=== PATIENT | female | born 1955 | race Caucasian/White ===

== ENCOUNTER 2017-04-06 01:21 | Emergency (ER) | payer BC, OTHER ==
[2017-04-06 02:18] VITALS: BP 130/71
--- NOTE | 2017-04-06 02:41 | ERNOTE ---
ER Female HPI Stated Complaint: UTI NOT IMPROVING Time Seen by Provider: 04/06/17 02:31 Source: patient Exam Limitations: no limitations Immunizations: IMMUNIZATION HX Immunizations Up to Date Yes History of Influenza Vaccine Yes Allergies/Adverse Reactions: Allergies No Known Drug Allergies Allergy (Verified 04/06/17 02:25) Home Medications: HOME MEDICATIONS Lactobacillus 3/Fos/Pantethine [Probiotic & Acidophilus Cap] 1 each PO DAILY 06/15 [Last Taken Unknown] Nitrofurantoin/Nitrofuran Mac [Macrobid] 100 mg PO Q12H 04/06/17 [Last Taken Unknown] Phenazopyridine HCl [Azo Standard] 97.5 mg PO DAILY 04/06/17 [Last Taken 00:00] Sulfamethoxazole/Trimethoprim [Bactrim Ds] 1 tab PO BID #14 tab 04/06/17 [Last Taken Unknown] - History of Present Illness Narrative: Patient presents to the emergency room for sensation of pressure in the bladder region, she feels as it "I have a UTI". She has been placed on Cipro which did not help her following that she was placed on Macrobid following a course of Macrobid yet she is still having pressure and dysuria. Denies any fevers or chills she denies any nausea or vomiting or back pain. The patient believes her urinary tract infection is not treated properly. Review of Systems - Review of Systems Constitutional: Present: no symptoms reported EYE: Present: no symptoms reported ENT: Present: no symptoms reported Respiratory: Present: no symptoms reported Cardiology: Present: no symptoms reported Gastrointestinal/Abdominal: Present: no symptoms reported Genitourinary: Present: See HPI - Patient's Past Medical History Patient History - Medical: UTI'S Patient History - Cardiac/Respiratory: No pertinent hx Patient History - Cancer: No Hx of Cancer Patient History - Surgical Procedures: No surgical history Patient History - Other: None LMP (females 10-50): Patient has been through menopause - Family History Mother Family History - Medical: No pertinent hx Family History - Cardiac/Respiratory: No pertinent hx Family History - Cancer: No pertinent family hx - Social History Living Situations: spouse Abuse History: No History of abuse Psych History: Hx of Anxiety Smoking Status: Never smoker Have you smoked in the past 12 months: No Do you dip or chew tobacco: No Patient requests Smoking Cessation Consult: No Initiate information on Smoking Cessation: No Alcohol Use: none Drug Use: none - Immunizations Immunizations Up to Date: Yes History of Influenza Vaccine: Yes Physical Exam - Physical Exam General Appearance: Present: wd/wn, alert, no apparent distress Ears, Nose, Throat: Present: normal ENT inspection Neck: Present: normal inspection, nontender Respiratory: Present: no respiratory distress, normal breath sounds, no accessory muscle use, chest nontender, lungs clear Cardiovascular/Chest: Present: regular rate, rhythm, no murmur, normal peripheral pulses Gastrointestinal/Abdominal: Present: other - edematous soft nondistended and nontender she does have some suprapubic tenderness on examination but no rebound tenderness this is a benign abdomen. ED Progress - Results and Orders Patient's Lab Results:: I have reviewed the patient's lab results. - Vital Signs Patient's Vital Signs:: I have reviewed the patient's vital signs. Vital Signs: Vital Signs 04/06/17 02:10 Temperature 36.6 C Pulse Rate 67 Respiratory 14 Rate Blood Pressure 130/71 O2 Sat by Pulse 98 Oximetry - Progress/Reassessment Chief Complaint: Urinary Tract Problems Plan - Plan Plan: Patient tends to have a UTI which apparently is resistant to Cipro and Macrobid cultures have been ordered however this patient will be treated at this time with Bactrim. Vitals are stable and a prescription for Bactrim will be given to her. She is to follow up with her primary care doctor. This patient's urinalysis revealed that she still had nitrates Departure Clinical Impression: Urinary tract infection Qualifiers: Urinary tract infection type: site unspecified Hematuria presence: with hematuria Qualified Code(s): N39.0 - Urinary tract infection, site not specified ; R31.9 - Hematuria, unspecified - Departure Disposition: Home self-care Condition: Good Instructions: Urinary Tract Infection, Adult, [id number] Referrals: Mariaelena Joseph MD [Primary Care Provider] - Prescriptions: Sulfamethoxazole/Trimethoprim [Bactrim Ds] 1 tab PO BID #14 tab
[2017-04-06 02:44] LABS: Urine Bilirubin Negative (NEGATIVE); Urine Blood Negative /ul (NEGATIVE); Urine Ketone 15 mg/dL (NEGATIVE); Urine Protein Negative (NEGATIVE); Urine Specific Gravity <=1.005 SP.GR. (1.005-1.010); Urine Urobilinogen Normal (NORMAL); Urine pH 5.5 pH (5.0-7.0)
[2017-04-06 03:04] LABS: Urine Appearance Clear; Urine Bacteria 3+; Urine Color Orange; Urine Nitrite Positive (NEGATIVE); Urine RBC 0-5 /hpf (0-5); Urine WBC None Seen /hpf (0-5)
[2017-04-06] MEDS ORDERED: SULFAMETHOXAZOLE/TRIMETHOPRIM 1 TAB TABLET PO ONE (03:16)
[2017-04-06] MEDS ORDERED: SULFAMETHOXAZOLE/TRIMETHOPRIM 1 TAB TABLET ONE (03:18)
== END 2017-04-06 03:29 | disposition home or self-care (01) ==
LOC: ER 01:21
DX: N39.0 Urinary tract infection, site not specified (principal); R31.9 Hematuria, unspecified

== ENCOUNTER 2017-08-21 02:38 | Emergency (ER) | payer BC ==
[2017-08-21] MEDS ORDERED: ONDANSETRON HCL/PF 2 MG/ML VIAL IV ONE (02:57)
[2017-08-21] MEDS ORDERED: NORMAL SALINE 1,000 ML IV ONE ×2 (02:58→04:20)
[2017-08-21] MEDS ORDERED: ONDANSETRON HCL/PF 2 MG/ML VIAL ONE (03:00)
--- NOTE | 2017-08-21 03:02 | ERNOTE ---
Medical Problem HPI - General Chief Complaint: Nausea/Vomiting Time Seen by Provider: 08/21/17 02:50 Source: patient, family Exam Limitations: no limitations - Immun/Allergies/Home Medications Immunizations: IMMUNIZATION HX Immunizations Up to Date Yes History of Influenza Vaccine Yes Allergies/Adverse Reactions: Allergies No Known Drug Allergies Allergy (Verified 08/21/17 02:49) Home Medications: HOME MEDICATIONS Ondansetron [Zofran Odt] 4 mg PO QID PRN 08/21/17 [Last Taken Unknown] - History of Present History Narrative: Pt has had n/v once daily for 3 days. Her PCP called in zofran and she has used it 2-3 times. She begins to get chills and then puts a heating pad on and then notices her temperature is elevated. Timing: constant Severity: moderate Modifying Factors - (Worsens): Present: eating Review of Systems - Review of Systems Constitutional: Absent: recent illness EYE: Present: no symptoms reported ENT: Present: no symptoms reported Respiratory: Present: no symptoms reported Cardiology: Present: no symptoms reported Gastrointestinal/Abdominal: Present: See HPI, constipation, eating less, drinking less. Absent: abdominal pain Genitourinary: Present: no symptoms reported Musculoskeletal: Present: no symptoms reported Skin: Present: no symptoms reported Neurological: Present: no symptoms reported Endocrine: Present: excessive sweating, flushing Hematologic/Lymphatic: Present: no symptoms reported - Patient's Past Medical History Patient History - Medical: UTI'S Patient History - Cardiac/Respiratory: No pertinent hx Patient History - Cancer: No Hx of Cancer Patient History - Surgical Procedures: No surgical history Patient History - Other: None - Family History Mother Family History - Medical: No pertinent hx Family History - Cardiac/Respiratory: No pertinent hx Family History - Cancer: No pertinent family hx - Social History Living Situations: home Abuse History: No History of abuse Psych History: Hx of Anxiety Smoking Status: Never smoker Alcohol Use: none Drug Use: none - Immunizations Immunizations Up to Date: Yes History of Influenza Vaccine: Yes Physical Exam - Physical Exam General Appearance: Present: wd/wn, alert, mild distress Head Exam: Present: normal inspection, no evidence of injury Respiratory: Present: no respiratory distress, no accessory muscle use Gastrointestinal/Abdominal: Present: nontender, nondistended, soft, abnormal bowel sounds - hypoactive with occasional high pitched sounds. Absent: guarding , rebound Back Exam: Present: normal inspection, normal range of motion, no vertebral tenderness Extremity Exam: Present: normal inspection, normal range of motion, no edema Neurological Exam: Present: alert, oriented Skin Exam: Present: normal color, warm/dry Lymphatic Exam: Present: no adenopathy ED Progress - Results and Orders Patient's Lab Results:: I have reviewed the patient's lab results. Results and Orders: Laboratory Tests 08/21/17 08/21/17 02:58 02:58 WBC 12.3 H Hgb 11.2 L Hct 33.0 L Plt Count 185 Neutrophils % 85.5 H Sodium 130 L Potassium 3.9 Chloride 94 L Carbon Dioxide 25.0 BUN 12 Creatinine 1.17 Random Glucose 124 H Calcium 8.9 Total Bilirubin 1.1 AST 107 H ALT 89 H Alkaline Phosphatase 133 Total Protein 7.2 Albumin 3.0 L - Vital Signs Patient's Vital Signs:: I have reviewed the patient's vital signs. Vital Signs: Vital Signs 08/21/17 02:44 Temperature 37.4 C Pulse Rate 102 H Respiratory 18 Rate Blood Pressure 98/60 O2 Sat by Pulse 94 Oximetry - X-Ray X-Ray #1 X-Ray: abdomen Interpretation: Interp. by me X-ray Comments: moderate stool retention, no a/f levels or distended loops of bowel. - Progress/Reassessment Chief Complaint: Nausea/Vomiting Progress Note-Subjective: 08/21/17 04:31 Pt has not had any vomiting but is still nauseous. Ordered compazine IV. 08/21/17 05:00 Pt improved, discussed constipation and magnesium citrate, taking zofran scheduled for the next 24 hours and clear liquid diet for 24 hours. Pt expressed understanding. Departure Clinical Impression: Vomiting alone Qualifiers: Vomiting type: unspecified Vomiting Intractability: non-intractable Qualified Code(s): R11.11 - Vomiting without nausea Constipation Qualifiers: Constipation type: unspecified constipation type Qualified Code(s): K59.00 - Constipation, unspecified - Departure Disposition: Home self-care Condition: Good Instructions: Constipation, Adult, [id number] Additional Instructions: Take half of the bottle of magnesium citrate with a glass of water. If you don' t have results in 4-6 hours take the other half with another glass of water. Take zofran every 8 hours for 24 hours then use it as needed. See your primary care provider if not improving. Referrals: Mariaelena Joseph MD [Primary Care Provider] -
[2017-08-21 03:31] LABS: Hemoglobin 11.2 gm/dL (12.5-16.0); Mean Cell Volume 82.9 fl (78-100); Mean Corpuscular Hemoglobin 28.1 pg (27-31); Mean Corpuscular Hgb Conc 33.9 g/dl (32-36); Mean Platelet Volume 10.6 fl (6.0-9.5); Neutrophil # 10.5 K/mm3 (1.3-6.0); Neutrophil % 85.5 % (42-75.0); Platelet Count 185 K/mm3 (150-450); Red Blood Count 3.98 M/mm3 (4.2-5.4); Red Cell Distribution Width 11.7 % (11.5-14.0); White Blood Count 12.3 K/mm3 (4.0-10.5)
[2017-08-21 03:47] LABS: Anion Gap 14.9 mmol/L (6.8-13.8); BUN/Creatinine Ratio 10.3 (9.0-21.6); Bilirubin, Total 1.1 mg/dL (0.0-1.1); Ca. Corrected For Albumin 9.4 mg/dL (8.4-10.2); Calcium * 8.9 mg/dL (7.9-10.9); Potassium 3.9 mmol/L (3.4-4.6); Total Protein 7.2 gm/dL (6.2-8.2)
[2017-08-21] MEDS ORDERED: PROCHLORPERAZINE EDISYLATE 5 MG/ML VIAL ONE (04:19)
[2017-08-21] MEDS ORDERED: PROCHLORPERAZINE EDISYLATE 5 MG/ML VIAL IV ONE (04:19)
[2017-08-21] MEDS ORDERED: MAGNESIUM CITRATE 300 ML BTL ONE (05:13)
[2017-08-21] MEDS ORDERED: MAGNESIUM CITRATE 300 ML BTL PO ONE (05:13)
[2017-08-21 05:42] VITALS: BP 138/51
== END 2017-08-21 05:41 | disposition home or self-care (01) ==
LOC: ER 02:38
DX: K59.00 Constipation, unspecified (principal); R11.11 Vomiting without nausea; Z87.440 Personal history of urinary (tract) infections
CPT/HCPCS: 36415; 74020; 80053; 85025; 96374; 96375; 99284; J2405

== ENCOUNTER 2017-08-24 10:58 | Inpatient (IN) | payer BC ==
[2017-08-24 12:14] LABS: Hemoglobin 9.9 gm/dL (12.5-16.0); Mean Cell Volume 83.3 fl (78-100); Mean Corpuscular Hemoglobin 28.4 pg (27-31); Mean Corpuscular Hgb Conc 34.1 g/dl (32-36); Mean Platelet Volume 9.4 fl (6.0-9.5); Platelet Count 221 K/mm3 (150-450); Red Blood Count 3.48 M/mm3 (4.2-5.4); Red Cell Distribution Width 12.4 % (11.5-14.0); White Blood Count 14.6 K/mm3 (4.0-10.5)
[2017-08-24 12:18] LABS: Total Cells Counted 100
[2017-08-24] MEDS: NORMAL SALINE 1,000 ML IV SCH ×2 (12:24→13:36)
[2017-08-24 12:28] LABS: Albumin * 2.4 gm/dl (3.4-5.0); BUN/Creatinine Ratio 13.2 (9.0-21.6); Bilirubin, Total 0.5 mg/dL (0.0-1.1); Ca. Corrected For Albumin 9.7 mg/dL (8.4-10.2); Calcium * 8.7 mg/dL (7.9-10.9); Carbon Dioxide 26.4 mmol/L (24-32.6); Potassium 3.4 mmol/L (3.4-4.6); Total Protein 6.9 gm/dL (6.2-8.2)
[2017-08-24 12:35] LABS: Band 1 % (0-2.0); Lymphocyte 3 % (20-51); Monocyte 10 % (0-9); Neutrophil 86 % (42-75); Neutrophil # 12.6 K/mm3 (1.3-6.0)
[2017-08-24 12:37] LABS: Anisocytosis 1+; Platelet Estimate Normal (NORMAL)
[2017-08-24] MEDS ORDERED: DIATRIZOATE MEGLUMINE, SODIUM 30 ML BTL PO ONE (13:25)
[2017-08-24] MEDS ORDERED: PROCHLORPERAZINE EDISYLATE 5 MG/ML VIAL IV ONE (13:25)
--- NOTE | 2017-08-24 13:26 | ERNOTE ---
Abdominal HPI - Narrative Date of Service: 08/24/17 - General Chief Complaint: General Assessment Time Seen by Provider: 08/24/17 11:36 Source: patient, family, RN notes reviewed, past records Exam Limitations: no limitations - Immun/Allergies/Home Medications Immunizatons: IMMUNIZATION HX Immunizations Up to Date Yes History of Influenza Vaccine Yes Allergies/Adverse Reactions: Allergies No Known Drug Allergies Allergy (Verified 08/21/17 02:49) - History of Present Illness Narrative: 62 year old female brought to the ED by her for fevers, nausea, and lower abdominal pain that began 8 days ago. She was vomiting the first couple of days but this has subsided. She was seen here on 08/21. She was given IV fluids and meds for nausea. Her xray showed constipation. She was given magnesium citrate and did pass a large amount of stool, but her symptoms did not improve. She has been having fevers as high as 104. She denies any sick contacts. Her oral intake has been poor at home and she has not been taking any antipyretics, as she reports that any intake makes her feel worse. She reports that her abdominal pain has been intermittent across her lower abdomen. Timing: getting worse Prior Abdominal Problems: Present: none - HX states UTI's, this turned out to be atrophic vaginitis Prior Treatment: Present: recently seen. Absent: currently on antibiotics Review of Systems - Review of Systems Constitutional: Present: fever, chills, fatigue, malaise, decreased activity level EYE: Present: no symptoms reported ENT: Absent: nose congestion, sore throat Respiratory: Absent: shortness of breath, cough Cardiology: Absent: chest pain, syncope Gastrointestinal/Abdominal: Present: nausea, abdominal pain, eating less, drinking less. Absent: vomiting, diarrhea, constipation Genitourinary: Absent: frequency, dysuria, hematuria Musculoskeletal: Present: muscle pain, joint pain Skin: Absent: rash, lesions Neurological: Absent: headache, dizziness/light-headedness Endocrine: Present: no symptoms reported Hematologic/Lymphatic: Absent: easy bruising, easy bleeding Psych: Absent: anxiety, depressed - Patient's Past Medical History Patient History - Medical: No pertinent hx Patient History - Cardiac/Respiratory: No pertinent hx Patient History - Cancer: No Hx of Cancer Patient History - Surgical Procedures: No surgical history Patient History - Other: None LMP (females 10-50): Menopausal - Family History Mother Family History - Medical: No pertinent hx Family History - Cardiac/Respiratory: No pertinent hx Family History - Cancer: No pertinent family hx - Social History Living Situations: spouse Abuse History: No History of abuse Psych History: Hx of Anxiety Smoking Status: Never smoker Have you smoked in the past 12 months: No Do you dip or chew tobacco: No Alcohol Use: rarely Drug Use: none - Immunizations Immunizations Up to Date: Yes History of Influenza Vaccine: Yes Physical Exam - Physical Exam General Appearance: Present: alert, mild distress, thin, other - Ill appearing Head Exam: Present: normal inspection Eye Exam: Normal inspection: bilateral Neck: Present: normal inspection, nontender, supple Respiratory: Present: no respiratory distress, normal breath sounds, no accessory muscle use, chest nontender, lungs clear Cardiovascular/Chest: Present: regular rate, rhythm, no murmur, normal peripheral pulses Gastrointestinal/Abdominal: Present: normal bowel sounds, nontender, nondistended, soft Back Exam: Present: normal inspection, no CVA tenderness Extremity Exam: Present: normal inspection, normal range of motion, no edema Neurological Exam: Present: alert, oriented, normal mood/affect, no motor/ sensory deficits Skin Exam: Present: warm/dry, pallor ED Progress - Results and Orders Patient's Lab Results:: I have reviewed the patient's lab results. Results and Orders: Laboratory Tests 08/24/17 08/24/17 08/24/17 12:00 12:00 12:00 WBC 14.6 H RBC 3.48 L Hgb 9.9 L Hct 29.0 L Neutrophils % (Manual) 86 H Band Neuts % (Manual) 1 Lymphocytes % (Manual) 3 L Monocytes % (Manual) 10 H Neutrophils # (Manual) 12.6 H Lymphocytes # (Manual) 0.4 L Monocytes # (Manual) 1.5 H Sodium 138 Plasma Sodium 138 Potassium 3.4 Chloride 100 Carbon Dioxide 26.4 Anion Gap 15.0 H BUN 16 Creatinine 1.21 Random Glucose 120 H Lactic Acid, Venous 1.0 Calcium 8.7 Total Bilirubin 0.5 AST 52 H ALT 72 H Alkaline Phosphatase 195 H Amylase 41 Lipase 106 Procalcitonin Urine Color Urine Appearance Urine pH Ur Specific [place] Urine Protein Urine Glucose (UA) Urine Ketones Urine Blood Urine Nitrate Urine Bilirubin Prot Sulfosalicylic Acd Urine Urobilinogen Ur Leukocyte Esterase Urine RBC Urine WBC Ur Epithelial Cells Urine Bacteria Urine Culture Comments 08/24/17 08/24/17 12:00 13:38 WBC RBC Hgb Hct Neutrophils % (Manual) Band Neuts % (Manual) Lymphocytes % (Manual) Monocytes % (Manual) Neutrophils # (Manual) Lymphocytes # (Manual) Monocytes # (Manual) Sodium Plasma Sodium Potassium Chloride Carbon Dioxide Anion Gap BUN Creatinine Random Glucose Lactic Acid, Venous Calcium Total Bilirubin AST ALT Alkaline Phosphatase Amylase Lipase Procalcitonin 7.62 H Urine Color Yellow Urine Appearance Cloudy Urine pH 6.0 Ur Specific [place] 1.015 Urine Protein 100 H Urine Glucose (UA) Negative Urine Ketones Negative Urine Blood 250 H Urine Nitrate Positive H Urine Bilirubin Negative Prot Sulfosalicylic Acd 4+ H Urine Urobilinogen Normal Ur Leukocyte Esterase 75 H Urine RBC 5-10 H Urine WBC 10-25 H Ur Epithelial Cells 0-5 Urine Bacteria 3+ H Urine Culture Comments Culture to follow - Vital Signs Patient's Vital Signs:: I have reviewed the patient's vital signs. Vital Signs: Vital Signs 08/24/17 11:09 Temperature 38.9 C H Pulse Rate 90 Respiratory 16 Rate Blood Pressure 137/86 O2 Sat by Pulse 96 Oximetry - CT/Ultrasound CT/Ultrasound Narrative: IMPRESSION: 1. Abnormal appearance of the bilateral kidneys as discussed above. Appearance is most compatible with bilateral pyelonephritis, especially given clinical history. Other considerations also include atypical, infiltrative presentation of tumor such as metastatic disease or lymphoma. Recommend follow-up CT examination in 3-6 months to document resolution. Clinical correlation is advised. 2. Potential mild right-sided hydronephrosis, without definite signs of high-grade obstruction on delayed images. Partial obstruction should be considered. 3. Appendix partially visualized but no definite signs of periappendiceal or pericecal inflammation. 4. Trace amount of free fluid in the pelvis and fluid adjacent to the tip of the liver. 5. Additional comments and details are as above. Electronically signed by Ant Vega M.D.. - Progress/Reassessment Chief Complaint: General Assessment Progress:: Improved Plan - Plan Plan: The patient's condition has continued to worsen since she was seen on 08/21 Her WBC is still rising with a left shift. Her lactic acid is normal but procalcitonin is elevated. Her Hgb has also dropped over a point in the past 3 days. Blood and urine cultures are pending. She has had 1800 ml NS IV. Will order IV Cipro. Dr. Alonso contacted for admission. Departure Clinical Impression: Pyelonephritis, acute - Departure Disposition: [facility] Condition: Stable
[2017-08-24 13:47] LABS: Urine Bilirubin Negative (NEGATIVE); Urine Blood 250 /ul (NEGATIVE); Urine Ketone Negative (NEGATIVE); Urine Protein 100 mg/dL (NEGATIVE); Urine Specific Gravity 1.015 SP.GR. (1.005-1.010); Urine Urobilinogen Normal (NORMAL)
[2017-08-24] MEDS ORDERED: DIATRIZOATE MEGLUMINE, SODIUM 30 ML BTL ONE (13:47)
[2017-08-24] MEDS ORDERED: PROCHLORPERAZINE EDISYLATE 5 MG/ML VIAL ONE (13:47)
[2017-08-24 13:57] LABS: Urine Appearance Cloudy; Urine Bacteria 3+; Urine Color Yellow; Urine Nitrite Positive (NEGATIVE)
[2017-08-24] MEDS ORDERED: NORMAL SALINE 1,000 ML IV ONE (17:52)
[2017-08-24] MEDS: ACETAMINOPHEN 325 MG TABLET PO PRN (18:57)
[2017-08-24] MEDS: CIPROFLOXACIN IN 5 % DEXTROSE 400 MG/200 ML BAG IV SCH (19:10)
[2017-08-24] MEDS ORDERED: ONDANSETRON HCL/PF 2 MG/ML VIAL IV PRN (19:46)
[2017-08-24] MEDS: NORMAL SALINE 1,000 ML IV PRN (20:13)
--- NOTE | 2017-08-24 20:22 | HP ---
Chief Complaint - Chief Complaint Date of Service: 08/24/17 Time of Service: 19:59 Chief Complaint: nausea, fever, abdominal pain History of Present Illness: 62 years old female adm to the hospital with reports of fever, chills, abdominal pain, nausea and vomiting. PMH significant for UTI. Pt stated she came to ER On due to temp >100. She was hydrated and given mag citrate for constipation. While at home she had no appetite, nausea, vomiting, abdominal pain and intermittent fevers >102. Today she was seen in ER with temp 38.0, WBC 14.6 with left shift, procalcitonin elevated and lactic normal, she also had a slightly elevated LFT. CT ABD: Appearance compatible with bilateral pyelonephritis. potential mild right sided hydronephrosis without definite signs of high grade obstruction on delayed image. IVF and antibiotics given in ER, Blood culture and urine culture spending. Plan of care discussed with pt she verbalized understanding and agree. - Patient's Past Medical History Patient History - Medical: Anxiety, UTI'S Patient History - Cardiac/Respiratory: No pertinent hx Patient History - Cancer: No Hx of Cancer Patient History - Surgical Procedures: No surgical history Patient History - Other: None LMP (females 10-50): Menopausal - Family History Mother Family History - Medical: No pertinent hx Family History - Cardiac/Respiratory: Other Family History - Cancer: No pertinent family hx Father Family History - Medical: , Other Family History - Cardiac/Respiratory: No pertinent hx Family History - Cancer: No pertinent family hx - Social History Living Situations: spouse Abuse History: No History of abuse Psych History: Hx of Anxiety Smoking Status: Never smoker Have you smoked in the past 12 months: No Do you dip or chew tobacco: No Alcohol Use: occasionally - once a month Drug Use: none - Immunizations Immunizations Up to Date: Yes History of Influenza Vaccine: Yes Review Of Systems (GEN) - Review of Systems Generalized/Overall Review: Present: Chills, Fever, Malaise EENTM: Present: No Symptoms Reported Respiratory: Present: No Symptoms Reported Cardiac: Present: No Symptoms Reported Abdominal: Present: Nausea, Abdominal Pain Genitourinary: Present: No Symptoms Reported Musculoskeletal: Present: No Symptoms Reported Neurological: Present: No Symptoms Reported Skin: Present: No Symptoms Reported Endocrine: Present: No Symptoms Reported Immunizations: IMMUNIZATION HX Immunizations Up to Date Yes History of Influenza Vaccine Yes Allergies/Adverse Reactions: Allergies Allergy/AdvReac Type Severity Reaction Status Date / Time No Known Drug Allergies Allergy Verified 08/21/17 02:49 Exam - Exam Vital Signs: Vital Signs - Last Taken Temp 39 C H 08/24/17 18:30 Pulse 88 08/24/17 18:30 Resp 16 08/24/17 18:30 BP 130/58 08/24/17 18:30 Pulse Ox 95 08/24/17 18:30 Constitutional: Present: Alert, Oriented x3, Cooperative, Well developed, No distress, Middle aged ENT Exam: Present: hearing grossly normal Eye Exam: bilateral eye: normal inspection Neck: Present: full range of motion Back Exam: Present: normal inspection Breasts: Present: Exam deferred Respiratory: Present: chest non-tender, lungs clear, normal breath sounds, no respiratory distress Cardiovascular/Chest: Present: normal peripheral pulses, regular rate, rhythm, no chest tenderness, no edema Peripheral Pulses: dorsalis-pedis (R): 3+, dorsalis-pedis (L): 3+ Abdomen: Present: Normal bowel sounds, soft, nondistended, no rebound tenderness , tender /Rectal: Present: Exam deferred Extremity: Present: normal range of motion, non-tender, normal inspection, no pedal edema, no calf tenderness Skin Exam: Present: normal color, warm/dry, no cyanosis Neurologic: Present: oriented x 3 Appearance: Present: appropriate appearance Eye contact: Present: cooperative, good eye contact Thoughts: Present: normal thought pattern Diagnostic Studies: Laboratory Results WBC 14.6 K/mm3 (4.0-10.5) H 08/24/17 12:00 RBC 3.48 M/mm3 (4.2-5.4) L 08/24/17 12:00 Hgb 9.9 gm/dL (12.5-16.0) L 08/24/17 12:00 Hct 29.0 % (37.0-47.0) L 08/24/17 12:00 MCV 83.3 fl (78-100) 08/24/17 12:00 MCH 28.4 pg (27-31) 08/24/17 12:00 MCHC 34.1 g/dl (32-36) 08/24/17 12:00 RDW 12.4 % (11.5-14.0) 08/24/17 12:00 Plt Count 221 K/mm3 (150-450) 08/24/17 12:00 MPV 9.4 fl (6.0-9.5) 08/24/17 12:00 Neutrophils % (Manual) 86 % (42-75) H 08/24/17 12:00 Band Neuts % (Manual) 1 % (0-2.0) 08/24/17 12:00 Lymphocytes % (Manual) 3 % (20-51) L 08/24/17 12:00 Monocytes % (Manual) 10 % (0-9) H 08/24/17 12:00 Neutrophils # (Manual) 12.6 K/mm3 (1.3-6.0) H 08/24/17 12:00 Lymphocytes # (Manual) 0.4 k/mm3 (1.5-3.5) L 08/24/17 12:00 Monocytes # (Manual) 1.5 k/mm3 (0.0-1.0) H 08/24/17 12:00 Platelet Estimate Normal (NORMAL) 08/24/17 12:00 Anisocytosis 1+ 08/24/17 12:00 Sodium 138 mmol/L (132-142) 08/24/17 12:00 Plasma Sodium 138 mmol/L (130-142) 08/24/17 12:00 Potassium 3.4 mmol/L (3.4-4.6) 08/24/17 12:00 Chloride 100 mmol/L (97-106) 08/24/17 12:00 Carbon Dioxide 26.4 mmol/L (24-32.6) 08/24/17 12:00 Anion Gap 15.0 mmol/L (6.8-13.8) H 08/24/17 12:00 BUN 16 mg/dL (3-23) 08/24/17 12:00 Creatinine 1.21 mg/dL (0.4-1.4) 08/24/17 12:00 Est GFR (Non-Af Amer) 48 mL/min (60-130) L 08/24/17 12:00 BUN/Creatinine Ratio 13.2 (9.0-21.6) 08/24/17 12:00 Random Glucose 120 mg/dL (70-110) H 08/24/17 12:00 Lactic Acid, Venous 1.0 mmol/L (0.4-1.9) 08/24/17 12:00 Calcium 8.7 mg/dL (7.9-10.9) 08/24/17 12:00 Calcium Adj for Albumin 9.7 mg/dL (8.4-10.2) 08/24/17 12:00 Total Bilirubin 0.5 mg/dL (0.0-1.1) 08/24/17 12:00 AST 52 U/L (0-48) H 08/24/17 12:00 ALT 72 U/L (19-67) H 08/24/17 12:00 Alkaline Phosphatase 195 U/L (50-170) H 08/24/17 12:00 Total Protein 6.9 gm/dL (6.2-8.2) 08/24/17 12:00 Albumin 2.4 gm/dl (3.4-5.0) L 08/24/17 12:00 Amylase 41 U/L (25-115) 08/24/17 12:00 Lipase 106 U/L (73-393) 08/24/17 12:00 Procalcitonin 7.62 ng/mL (0.05-0.50) H 08/24/17 12:00 Urine Color Yellow 08/24/17 13:38 Urine Appearance Cloudy 08/24/17 13:38 Urine pH 6.0 pH (5.0-7.0) 08/24/17 13:38 Ur Specific [place] 1.015 SP.GR. (1.005-1.010) 08/24/17 13:38 Urine Protein 100 mg/dL (NEGATIVE) H 08/24/17 13:38 Urine Glucose (UA) Negative mg/dL (NEGATIVE) 08/24/17 13:38 Urine Ketones Negative mg/dL (NEGATIVE) 08/24/17 13:38 Urine Blood 250 /ul (NEGATIVE) H 08/24/17 13:38 Urine Nitrate Positive (NEGATIVE) H 08/24/17 13:38 Urine Bilirubin Negative mg/dl (NEGATIVE) 08/24/17 13:38 Prot Sulfosalicylic Acd 4+ mg/dL (0) H 08/24/17 13:38 Urine Urobilinogen Normal EU/dl (NORMAL) 08/24/17 13:38 Ur Leukocyte Esterase 75 /ul (NEGATIVE) H 08/24/17 13:38 Urine RBC 5-10 /hpf (0-5) H 08/24/17 13:38 Urine WBC 10-25 /hpf (0-5) H 08/24/17 13:38 Ur Epithelial Cells 0-5 /hpf (0-5) 08/24/17 13:38 Urine Bacteria 3+ (NONE) H 08/24/17 13:38 Urine Culture Comments Culture to follow 08/24/17 13:[address] ABD: 1. Abnormal appearance of the bilateral kidneys as discussed above. Appearance is most compatible with bilateral pyelonephritis, especially given clinical history. Other considerations also include atypical, infiltrative presentation of tumor such as metastatic disease or lymphoma. Recommend follow-up CT examination in 3-6 months to document resolution. Clinical correlation is advised. 2. Potential mild right-sided hydronephrosis, without definite signs of high-grade obstruction on delayed images. Partial obstruction should be considered. 3. Appendix partially visualized but no definite signs of periappendiceal or pericecal inflammation. 4. Trace amount of free fluid in the pelvis and fluid adjacent to the tip of the liver. 5. Additional comments and details are as above. Assessment/Plan - Narrative Narrative: Pyelonephritis Pt reports abdomnal pain, nausea, vomiting and fever CT ABD: abnormal appearance of bilateral kidneys appearance is most compatible with bilateral pyelonephritis Continue with iVF and Cipro Urine culture and blood culture pending On adm WBC 14.6, Temp 39, will continue to Monitor CBC, LFT in am Tylenol for fever Sepsis vs SIRs On adm Temp 39 BP 130/58 WBC 14.6 pt have pyelonephritis Plan same as #1 Constipation- resolving pt stated she was given mag citrate and had bowel movements. Elevated Liver enzymes On adm ALT 72, AST 52 continue to monitor Code status: Full GI ppx: Pepcid VTE ppx: SCD and ambulate Time 40 minutes and case discussed with Dr Alonso - Assessment/Plan (1) Pyelonephritis, acute Problem: Acute (2) Constipation Problem: Acute (3) Urinary tract infection Problem: Acute (4) Vomiting alone Problem: Acute (5) SIRS (systemic inflammatory response syndrome) Problem: Acute
[2017-08-25] MEDS: NORMAL SALINE 1,000 ML IV PRN (02:48)
[2017-08-25] MEDS: ACETAMINOPHEN 325 MG TABLET PO PRN ×3 (02:49→22:44)
[2017-08-25 05:32] LABS: Hematocrit 25.4 % (37.0-47.0); Hemoglobin 8.3 gm/dL (12.5-16.0); Mean Cell Volume 85.5 fl (78-100); Mean Corpuscular Hemoglobin 27.9 pg (27-31); Mean Corpuscular Hgb Conc 32.7 g/dl (32-36); Mean Platelet Volume 9.1 fl (6.0-9.5); Platelet Count 184 K/mm3 (150-450); Red Blood Count 2.97 M/mm3 (4.2-5.4); Red Cell Distribution Width 12.5 % (11.5-14.0); White Blood Count 11.4 K/mm3 (4.0-10.5)
[2017-08-25 05:44] LABS: Total Cells Counted 100
[2017-08-25 05:48] LABS: Albumin * 1.8 gm/dl (3.4-5.0); Anion Gap 12.8 mmol/L (6.8-13.8); BUN/Creatinine Ratio 10.1 (9.0-21.6); Bilirubin, Total 0.4 mg/dL (0.0-1.1); Ca. Corrected For Albumin 9.4 mg/dL (8.4-10.2); Carbon Dioxide 25.3 mmol/L (24-32.6); Potassium 3.1 mmol/L (3.4-4.6); Total Protein 5.4 gm/dL (6.2-8.2)
[2017-08-25 05:57] LABS: Eosinophil 1 % (0-3); Lymphocyte 5 % (20-51); Monocyte 7 % (0-9); Neutrophil 87 % (42-75); Neutrophil # 9.9 K/mm3 (1.3-6.0); Platelet Estimate Normal (NORMAL)
[2017-08-25 05:58] LABS: RBC Morphology Normal (NORMAL)
[2017-08-25] MEDS: CIPROFLOXACIN IN 5 % DEXTROSE 400 MG/200 ML BAG IV SCH ×2 (06:24→18:20)
[2017-08-25] MEDS: FAMOTIDINE 20 MG TABLET PO SCH (08:42)
--- NOTE | 2017-08-25 11:43 | PN ---
Subjective - Date and Time Seen Date: 08/25/17 Time: 06:30 Subjective Narrative: Pt. feeling better than she did last night. Appetite coming back. Abdominal pain still, but much better than it was. Objective - Review of Systems Generalized/Overall Review: Reports: Weakness, Chills, Fever, Malaise EENTM: Reports: No Symptoms Reported Respiratory: Reports: No Symptoms Reported Cardiac: Reports: No Symptoms Reported Abdominal: Reports: Abdominal Pain, Diarrhea. Denies: Nausea, Vomiting, Constipation Genitourinary Symptoms: Denies: Burning, Itching, Urgency, Frequency Neurological: Reports: No Symptoms Reported Skin: Reports: No Symptoms Reported Endocrine: Reports: No Symptoms Reported - Vitals Vitals: Last Vital Signs Temp 37.1 C 08/25/17 06:57 Pulse 65 08/25/17 06:57 Resp 16 08/25/17 06:57 BP 110/68 08/25/17 06:57 Pulse Ox 94 08/25/17 06:57 - Abnormal Lab Findings Abnormal Lab Findings: Abnormal Lab Results 08/25/17 08/25/17 Range/Units 05:25 05:25 WBC 11.4 H D (4.0-10.5) K/mm3 RBC 2.97 L (4.2-5.4) M/mm3 Hgb 8.3 L (12.5-16.0) gm/dL Hct 25.4 L (37.0-47.0) % Neutrophils % (Manual) 87 H (42-75) % Lymphocytes % (Manual) 5 L (20-51) % Neutrophils # (Manual) 9.9 H (1.3-6.0) K/mm3 Lymphocytes # (Manual) 0.6 L (1.5-3.5) k/mm3 Potassium 3.1 L (3.4-4.6) mmol/L Est GFR (Non-Af Amer) 54 L (60-130) mL/min Random Glucose 115 H (70-110) mg/dL AST 69 H (0-48) U/L ALT 81 H (19-67) U/L Alkaline Phosphatase 171 H (50-170) U/L Total Protein 5.4 L (6.2-8.2) gm/dL Albumin 1.8 L (3.4-5.0) gm/dl - Exam Constitutional: Present: Alert, Oriented x3, Cooperative, Lethargic ENT Exam: Present: hearing grossly normal Neck: Present: supple Respiratory: Present: chest non-tender, lungs clear, normal breath sounds, no respiratory distress, no accessory muscle use Cardiovascular/Chest: Present: normal peripheral pulses, regular rate, rhythm, no edema, no gallop, no murmur Abdomen: Present: Normal bowel sounds, soft, no rebound tenderness, tender. Absent: guarding /Rectal: Present: Exam deferred Extremity: Present: no calf tenderness. Absent: lower extremity edema Skin Exam: Present: normal color Neurologic: Present: normal mood/affect, oriented x 3 Appearance: Present: appropriate appearance, appropriate insight, neat Eye contact: Present: cooperative, good eye contact, normal speech Thoughts: Present: normal thought pattern, no apparent hallucination Assessment/Plan - Problems/Diagnosis (1) Pyelonephritis, acute Problem: Acute Narrative: given the CT and UA findings, fevers, leukocytosis with left shift and significantly high pro-calcitonin levels and abnormal LFTs, there are definite signs that pt. was at least early sepsis/SIRS. She appears to be responding well to the IV abx, but definitely meets criteria for admission to hospital as she is not well enough to go home tonight, meaning a 2 midnight stay. (2) SIRS (systemic inflammatory response syndrome) Problem: Acute Narrative: reflected in the fever, elevated pro-calcitonin, CT findings and abnl LFTs. Continue fluids and IV abx. (3) Discharge planning issues Problem: Acute Narrative: hopefully can discharge her tomorrow on PO abx.
[2017-08-25] MEDS: POTASSIUM CHLORIDE 40 MEQ in NORMAL SALINE 1,000 ML IV SCH ×2 (13:27→21:24)
[2017-08-26] MEDS: POTASSIUM CHLORIDE 40 MEQ in NORMAL SALINE 1,000 ML IV SCH ×2 (05:31→12:48)
[2017-08-26] MEDS: CIPROFLOXACIN IN 5 % DEXTROSE 400 MG/200 ML BAG IV SCH (05:33)
[2017-08-26 06:04] LABS: Hematocrit 25.6 % (37.0-47.0); Hemoglobin 8.4 gm/dL (12.5-16.0); Mean Cell Volume 85.6 fl (78-100); Mean Corpuscular Hemoglobin 28.1 pg (27-31); Mean Corpuscular Hgb Conc 32.8 g/dl (32-36); Mean Platelet Volume 9.3 fl (6.0-9.5); Neutrophil % 72.6 % (42-75.0); Platelet Count 236 K/mm3 (150-450); Red Blood Count 2.99 M/mm3 (4.2-5.4); Red Cell Distribution Width 12.7 % (11.5-14.0); White Blood Count 8.3 K/mm3 (4.0-10.5)
[2017-08-26 06:53] LABS: Albumin * 2.1 gm/dl (3.4-5.0); Anion Gap 12.2 mmol/L (6.8-13.8); BUN/Creatinine Ratio 7.3 (9.0-21.6); Bilirubin, Total 0.3 mg/dL (0.0-1.1); Ca. Corrected For Albumin 9.3 mg/dL (8.4-10.2); Calcium * 8.1 mg/dL (7.9-10.9); Carbon Dioxide 25.3 mmol/L (24-32.6); Potassium 3.5 mmol/L (3.4-4.6); Total Protein 5.3 gm/dL (6.2-8.2)
[2017-08-26] MEDS: FAMOTIDINE 20 MG TABLET PO SCH (09:04)
[2017-08-26 10:39] VITALS: BP 138/74
--- NOTE | 2017-08-26 12:00 | DS ---
(1) Pyelonephritis, acute Problem: Acute Description of Stay: ADMISSION DATE: 08/24/2017 DISCHARGE DATE: 08/26/2017 ADMISSION HPI by RUSSEL Shaffer: 62 years old female adm to the hospital with reports of fever, chills, abdominal pain, nausea and vomiting. PMH significant for UTI. Pt stated she came to ER On due to temp >100. She was hydrated and given mag citrate for constipation. While at home she had no appetite, nausea, vomiting, abdominal pain and intermittent fevers >102. Today she was seen in ER with temp 38.0, WBC 14.6 with left shift, procalcitonin elevated and lactic normal, she also had a slightly elevated LFT. CT ABD: Appearance compatible with bilateral pyelonephritis. potential mild right sided hydronephrosis without definite signs of high grade obstruction on delayed image. IVF and antibiotics given in ER, Blood culture and urine culture spending. Plan of care discussed with pt she verbalized understanding and agree. HOSPITAL COURSE: The patient was admitted to the hospital with acute bilateral pyelonephritis. Blood cultures on admission 2 were negative. Urine culture grew pansensitive Escherichia coli. The patient was treated with IV antibiotics during her admission and these were transitioned to oral antibiotics prior to discharge. The patient had an uneventful admission and was discharged home in stable condition. She will need a follow-up CT scan of the abdomen and pelvis to document resolution approximately 3-6 months. FOLLOW-UP APPOINTMENTS: -PCP, Dr. Joseph, within 1 week -The patient will need a follow-up CT scan of abdomen and pelvis to document resolution in approximately 3-6 months. NEW OR CHANGED MEDICATIONS: -Ciprofloxacin 500 mg PO BID X 7 additional days -Probiotic BID. Patient instructed to continue the probiotic until 2 weeks after completion of her antibiotics. DISCONTINUED MEDICATIONS: None RADIOLOGY REPORTS: CT of the abdomen and pelvis with both IV and oral contrast on 08/24/2017: 1.Abnormal appearance of the bilateral kidneys. Appearance is most compatible with bilateral pyelonephritis, especially given clinical history. Other considerations also include atypical, infiltrative presentation of tumor such as metastatic disease or lymphoma. Recommend follow-up CT examination in 3-6 months to document resolution. 2.Potential mild right-sided hydronephrosis, without definite signs of high- grade obstruction. Partial obstruction should be considered. 3.Appendix partially visualized but no definite signs of periappendiceal. Cecal inflammation. 4.Trace amount of free fluid in the pelvis and fluid adjacent to the tip of the liver. Procedures Performed: none Results and Findings: Laboratory Tests 08/24/17 08/24/17 08/24/17 12:00 12:00 12:00 WBC 14.6 H Hgb 9.9 L Hct 29.0 L MCV 83.3 Plt Count 221 Creatinine 1.21 Lactic Acid, Venous 1.0 AST 52 H ALT 72 H Alkaline Phosphatase 195 H Amylase 41 Lipase 106 Procalcitonin Urine Color Urine Appearance Urine pH Ur Specific [place] Urine Protein Urine Glucose (UA) Urine Ketones Urine Blood Urine Nitrate Urine Bilirubin Prot Sulfosalicylic Acd Urine Urobilinogen Ur Leukocyte Esterase Urine RBC Urine WBC Ur Epithelial Cells Urine Bacteria Urine Culture Comments 08/24/17 08/24/17 08/25/17 12:00 13:38 05:25 WBC 11.4 H D Hgb 8.3 L Hct 25.4 L MCV 85.5 Plt Count 184 Creatinine Lactic Acid, Venous AST ALT Alkaline Phosphatase Amylase Lipase Procalcitonin 7.62 H Urine Color Yellow Urine Appearance Cloudy Urine pH 6.0 Ur Specific [place] 1.015 Urine Protein 100 H Urine Glucose (UA) Negative Urine Ketones Negative Urine Blood 250 H Urine Nitrate Positive H Urine Bilirubin Negative Prot Sulfosalicylic Acd 4+ H Urine Urobilinogen Normal Ur Leukocyte Esterase 75 H Urine RBC 5-10 H Urine WBC 10-25 H Ur Epithelial Cells 0-5 Urine Bacteria 3+ H Urine Culture Comments Culture to follow 08/25/17 08/26/17 08/26/17 05:25 05:55 05:55 WBC 8.3 D Hgb 8.4 L Hct 25.6 L MCV 85.6 Plt Count 236 Creatinine 1.09 0.96 Lactic Acid, Venous AST 69 H 34 ALT 81 H 69 H Alkaline Phosphatase 171 H 170 Amylase Lipase Procalcitonin Urine Color Urine Appearance Urine pH Ur Specific [place] Urine Protein Urine Glucose (UA) Urine Ketones Urine Blood Urine Nitrate Urine Bilirubin Prot Sulfosalicylic Acd Urine Urobilinogen Ur Leukocyte Esterase Urine RBC Urine WBC Ur Epithelial Cells Urine Bacteria Urine Culture Comments Discharge Disposition: Home self care Disposition: Home self-care Condition: Stable Discharge Diet: General/regular food, Resume usual diet Referrals: Mariaelena Joseph MD [Primary Care Provider] - Problem Oriented Discharge Instructions to Patient/Family: Pyelonephritis, Adult, [id number] Additional Patient Instructions (free text): Follow-up with PCP, Dr. Joseph, within 1 week on 09-02-17 @ 10:30am. Prescriptions (Any new or edited meds): Ciprofloxacin HCl [Cipro] 500 mg PO BID #15 tab L.acidoph,Paracasei, B.lactis [Probiotic] 1 each PO BID #60 capsule Complete Home Medications List: Complete Home Medication List: Acetaminophen [Tylenol] 500 mg PO QID PRN 08/24/17 Ciprofloxacin HCl [Cipro] 500 mg PO BID #15 tab 08/26/17 L.acidoph,Paracasei, B.lactis [Probiotic] 1 each PO BID #60 capsule 08/26/17
== END 2017-08-26 13:33 | disposition home or self-care (01) | DRG 690 ==
LOC: ER 10:58 → MS 17:50 → OBSVTOIN 17:50
PROVIDERS: ADMIT Family Medicine; ATTEND Family Medicine
DX: N10 Acute pyelonephritis (principal); B96.20 Unspecified Escherichia coli [E. coli] as the cause of diseases classified elsewhere; R65.10 Systemic inflammatory response syndrome (SIRS) of non-infectious origin without acute organ dysfunction; K59.00 Constipation, unspecified; D72.829 Elevated white blood cell count, unspecified
CPT/HCPCS: 36415; 74177; 80053; 81001; 82150; 83605; 83690; 84145; 85007; 85025; 87040; 87077; 87086; 87186; 96374; 99285; J2405